=== PATIENT | male | born 1980 | race Hispanic/Latino ===

== ENCOUNTER 2018-01-31 19:37 | Emergency (ER) | payer OTHER ==
[2018-01-31 19:43] VITALS: RESP 18
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
[2018-02-01 00:04] VITALS: BP 119/71; PULSE 75; TEMP 97.9
[2018-02-01 00:20] VITALS: O2SAT 99
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
== END 2018-02-01 | disposition home or self-care (01) ==
LOC: H.ER 19:37
DX: R07.89 Other chest pain (principal); Y93.55 Activity, bike riding; Y92.410 Unspecified street and highway as the place of occurrence of the external cause